=== PATIENT | male | born 1945 | race Caucasian/White ===

== ENCOUNTER 2023-07-02 12:40 | Emergency (ER) | payer MEDICARE, BC ==
[~2023-07-02] VITALS: Ht 162.6 cm; Wt 75.7 kg
[2023-07-02] MEDS ORDERED: ACET-868 PO (13:30)
[2023-07-02] MEDS ORDERED: NAPR-1009 PO (13:30)
[2023-07-02 13:36] VITALS: BP 119/81; TEMP 98.1; O2SAT 99
== END 2023-07-02 13:37 | disposition home or self-care (01) ==
LOC: ER 12:49
DX: M54.2 Cervicalgia (principal); Z88.8 Allergy status to other drugs, medicaments and biological substances
CPT/HCPCS: 72040-TC

== ENCOUNTER 2023-11-08 17:00 | Emergency (ER) | payer MEDICARE, BC ==
[~2023-11-08] VITALS: Ht 157.5 cm; Wt 66.2 kg
[~2023-11-08 17:00] MED LIST: ACET-868 PO; NAPR-1009 PO
[2023-11-08 18:55] LABS: EOSINOPHILS % (AUTO) 0.1 % (0.0-6.0); LYMPHOCYTES # (AUTO) 2.6 K/uL (0.8-4.8); MEAN CORPUSCULAR HEMOGLOBIN 28 PG (26.0-33.0); MEAN CORPUSCULAR HGB CONC 32 g/dl (31.0-36.0); MONOCYTES # (AUTO) 0.6 K/uL (0.1-1.30); MONOCYTES % (AUTO) 7.7 % (2.0-12.0); NEUTROPHILS # (AUTO) 4.1 K/uL (1.8-8.9); NEUTROPHILS % (AUTO) 56.9 % (43.0-81.0); WHITE BLOOD COUNT (AUTO) 7.3 K/uL (4.3-11.0)
[2023-11-08] MEDS: IV NS 0.9% 1,000 ML BAG IV ONE (18:56)
[2023-11-08 19:00] LABS: BASOPHILS % (AUTO) 0.2 % (0.0-2.0); HEMATOCRIT 53 % (39-51); LYMPHOCYTES % (AUTO) 35.1 % (20.0-44.0); MEAN CORPUSCULAR VOLUME 88 fL (80-96); PLATELET COUNT (AUTO) 182 K/uL (150-450); RED BLOOD CELL COUNT(AUTO) 6.07 MIL/uL (4.5-6.0); RED CELL DISTRIBUTION WIDTH 16.4 % (11.5-15.0)
[2023-11-08 19:03] LABS: CALCIUM, SERUM 8.6 mg/dL (8.5-10.1); CARBON DIOXIDE 23 mmol/L (21-32); CHLORIDE 102 mmol/L (98-107); CREATININE 1.8 mg/dL (0.6-1.3); GLUCOSE 89 mg/dL (74-106); POTASSIUM 4.5 mmol/L (3.5-5.1); SODIUM SERUM 132 mmol/L (136-145); UREA NITROGEN, BLOOD 55 mg/dL (7-18)
[2023-11-08 19:08] LABS: ALANINE AMINOTRANSFERASE 38 U/L (12-78); ALBUMIN 3.5 g/dL (3.4-5.0); ALKALINE PHOSPHATASE 106 U/L (46-116); ASPARTATE AMINOTRANSFERASE 45 U/L (15-37); BILIRUBIN,DIRECT 0.1 mg/dL (0.0-0.2); BILIRUBIN,TOTAL 0.5 mg/dL (0.2-1.0); LIPASE 52 U/L (16-77); TOTAL PROTEIN, SERUM 7.5 g/dL (6.4-8.2)
[2023-11-08] MEDS ORDERED: CIPR-262 PO (21:15)
[2023-11-08] MEDS ORDERED: METR500T PO (21:15)
[2023-11-08 21:33] VITALS: BP 126/72; TEMP 98; O2SAT 99
== END 2023-11-08 21:34 | disposition home or self-care (01) ==
LOC: ER 17:00
DX: K52.9 Noninfective gastroenteritis and colitis, unspecified (principal); R11.0 Nausea; I25.2 Old myocardial infarction; Z88.8 Allergy status to other drugs, medicaments and biological substances
CPT/HCPCS: 99284; 74176; 96360; 85025; 80048; 83690; 80076; 36415; J7030